=== PATIENT | female | born 1980 | race Native Hawaiian/Other Pacific Islander ===

== ENCOUNTER 2022-08-27 04:53 | Day surgery (SDC) | payer BC ==
[2022-08-23 14:13] VITALS: BMI 22.3
[2022-08-27 12:17] VITALS: TEMP 98
[2022-08-27 12:57] VITALS: BP 112/61; PULSE 57; RESP 10
== END 2022-08-27 13:06 | disposition home or self-care (01) ==
LOC: JASU-ENDO 04:53
PROVIDERS: ATTEND Internal Medicine Gastroenterology
PROC: 0DB78ZX Excision of Stomach, Pylorus, Via Natural or Artificial Opening Endoscopic, Diagnostic (ICD-10-PCS; 2022-08-27)
PROC: 0DB68ZX Excision of Stomach, Via Natural or Artificial Opening Endoscopic, Diagnostic (ICD-10-PCS; principal; 2022-08-27 09:15)
DX: K29.50 Unspecified chronic gastritis without bleeding (principal)
CPT/HCPCS: 81025; 88305-TC; 88342-TC

== ENCOUNTER 2022-09-19 04:37 | Day surgery (SDC) | payer BC ==
[2022-09-16 08:56] VITALS: BMI 22.3
[2022-09-19 11:24] VITALS: TEMP 97.8
[2022-09-19 11:38] VITALS: BP 104/57
[2022-09-19 11:56] VITALS: PULSE 56; RESP 16
== END 2022-09-19 12:21 | disposition home or self-care (01) ==
LOC: JASU-ENDO 04:37
PROVIDERS: ATTEND Internal Medicine Gastroenterology
PROC: 0DBM8ZX Excision of Descending Colon, Via Natural or Artificial Opening Endoscopic, Diagnostic (ICD-10-PCS; principal; 2022-09-19 11:00)
DX: K63.89 Other specified diseases of intestine (principal); K64.8 Other hemorrhoids
CPT/HCPCS: 81025; 88305-TC